=== PATIENT | male | born 1940 | race Caucasian/White ===

== ENCOUNTER 2018-06-29 17:54 | Inpatient (IN) | payer MEDICARE ==
[~2018-06-29] VITALS: Ht 185.4 cm; Wt 99.5 kg
[2018-06-29 18:47] LABS: BASOPHILS # (AUTO) 0.1 (0.0-0.1); BASOPHILS % 0.6 % (0.0-1.0); EOSINOPHILS % 0.1 % (0.0-6.0); HEMATOCRIT 44.7 % (38.2-49.6); HEMOGLOBIN 14.3 g/dL (14.0-18.0); LYMPHOCYTES # (AUTO) 0.3 (1.0-3.2); LYMPHOCYTES % 2.9 % (18.0-39.1); MEAN CORPUSCULAR HEMOGLOBIN 25.8 pg (28-32); MEAN CORPUSCULAR VOLUME 80.7 fL (81-99); MONOCYTES # (AUTO) 0.7 (0.2-0.8); MONOCYTES % 6.2 % (4.4-11.3); NEUTROPHILS # (AUTO) 9.4 (2.1-6.9); NEUTROPHILS % 89.9 % (38.7-80.0); PLATELET COUNT 212 x10e3/uL (140-360); RED BLOOD COUNT 5.54 x10e6/uL (4.3-5.7)
[2018-06-29 18:58] LABS: INR 0.92; PARTIAL THROMBOPLASTIN TIME 24.9 seconds (23.8-35.5); PROTHROMBIN TIME 13.2 seconds (11.9-14.5)
--- NOTE | 2018-06-29 19:01 | Diagnostic Imaging Report ---
Examination: Single AP view of the chest. COMPARISON: None. INDICATION: Pain DISCUSSION: Lines/tubes: None. Lungs: The lungs are well inflated and clear. No pneumonia or pulmonary edema. Pleura: No pleural effusion or pneumothorax. Heart and mediastinum: The heart and the mediastinum are unremarkable. Bones and soft tissues: No acute bony abnormalities. IMPRESSION: 1. No acute cardiopulmonary abnormalities. Signed by: Dr. Rai Landa M.D. on 06/29/2018 6:58 PM
[2018-06-29 19:08] LABS: ALBUMIN 3.6 g/dL (3.5-5.0); ALBUMIN/GLOBULIN RATIO 1.1 (0.8-2.0); ANION GAP 20.4 mmol/L (8-16); CALCIUM 9.4 mg/dL (8.4-10.2); CREATININE, SERUM 1.43 mg/dL (0.72-1.25); POTASSIUM 3.4 mmol/L (3.5-5.1)
[2018-06-29 19:15] LABS: CREATINE KINASE MB 1.1 ng/mL (0-5.0)
[2018-06-29 19:20] LABS: BILIRUBIN,URINE NEGATIVE (NEGATIVE); CLARITY,URINE CLEAR (CLEAR); COLOR,URINE YELLOW (YELLOW); KETONES,URINE TRACE (NEGATIVE); LEUKOCYTE ESTERASE ,URINE NEGATIVE (NEGATIVE); NITRITE,URINE NEGATIVE (NEGATIVE); PROTEIN,URINE DIPSTICK NEGATIVE (NEGATIVE); URINE UROBILINOGEN 0.2 mg/dL (0.2 - 1)
[2018-06-29] MEDS ORDERED: SOTALOL80 MG PO (19:56)
[2018-06-29] MEDS ORDERED: ACETAMINOPHEN325 M1 PO (19:56)
[2018-06-29] MEDS ORDERED: FUROSEMIDE40 MG PO (19:56)
[2018-06-29] MEDS ORDERED: JARDIANCE PO (19:56)
[2018-06-29] MEDS ORDERED: SIMVASTATIN40 MG PO (19:56)
[2018-06-29] MEDS ORDERED: OMEPRAZOLE40 MG PO (19:56)
[2018-06-29] MEDS ORDERED: LISINOPRIL10 MG PO (19:56)
[2018-06-29] MEDS ORDERED: METOPROLOL SUCC50 MG PO (19:56)
[2018-06-29] MEDS ORDERED: TERAZOSIN HCL5 MG PO (19:56)
[2018-06-29] MEDS ORDERED: GLIPIZIDE5 MG PO (19:56)
[2018-06-29] MEDS ORDERED: METFORMIN HCL500 MG PO (19:56)
[2018-06-29] MEDS ORDERED: GABAPENTIN100 MG PO (19:56)
[2018-06-29] MEDS ORDERED: PLAVIX75 MG PO (19:56)
[2018-06-29] MEDS ORDERED: SODIUM CHLORIDE 0.9% 500ML 500 ML IV STA (20:18)
[2018-06-29] MEDS ORDERED: SODIUM CHLORIDE 0.9% 500ML 500 ML ONE (20:23)
[2018-06-29] MEDS ORDERED: IOPAMIDOL 370 MG/ML 200 ML INFUS..BTL INJ ONE (21:53)
[2018-06-29] MEDS ORDERED: SODIUM CHLORIDE 0.9% 50ML 50 ML ONE (21:53)
--- NOTE | 2018-06-29 22:12 | Diagnostic Imaging Report ---
EXAM: CT Abdomen and Pelvis WITH contrast INDICATION: Transaminitis. COMPARISON: None. TECHNIQUE: Abdomen and pelvis were scanned utilizing a multidetector helical scanner from the lung base to the pubic symphysis after administration of IV contrast. Coronal and sagittal reformations were obtained. Routine protocol was performed. Scan was performed when during portal venous phase. IV CONTRAST: 100 mL of Isovue-370 ORAL CONTRAST: Water COMPLICATIONS: None RADIATION DOSE: Total DLP: 802.6 mGy*cm Estimated effective dose: (DLP x 0.015 x size factor) mSv Dose modulation, iterative reconstruction, and/or weight based adjustment of the mA/kV was utilized to reduce the radiation dose to as low as reasonably achievable. FINDINGS: LINES and TUBES: None. LOWER THORAX: Subsegmental atelectasis in the lower lobes. HEPATOBILIARY: No focal hepatic lesions. No biliary ductal dilation. GALLBLADDER: There are stones in the gallbladder. No wall thickening. SPLEEN: No splenomegaly. Peripherally hyperattenuating 1.6 cm lesion. PANCREAS: No suspicious focal masses or ductal dilatation. Subcentimeter focal area of fat in the tail, likely entrapped fat or lipoma (coronal image 62). ADRENALS: No adrenal nodules KIDNEYS/URETERS: Kidneys enhance symmetrically. No hydronephrosis. Right interpolar region 0.7 cm hypodensity is too small to characterize. No stones. GI TRACT: No abnormal distention, wall thickening, or evidence of bowel obstruction. There are diverticula within the colon without evidence of diverticulitis. Appendix is normal. PELVIC ORGANS/BLADDER: Two punctate calcifications in the left posterior bladder, likely stones versus less likely prostatic calcifications. Prostate enlarged measuring approximately 5.9 cm in transverse diameter. Distended bladder. LYMPH NODES: No lymphadenopathy. VESSELS: There is moderate atherosclerotic disease in the aorta and major arterial branches. PERITONEUM / RETROPERITONEUM: No free air or fluid. BONES: There are degenerative changes in the lumbar spine. SOFT TISSUES: Unremarkable. IMPRESSION: 1. No acute abnormalities. 2. Cholelithiasis. 3. Colonic diverticulosis. 4. Prostatomegaly 5. Splenic 1.6 cm lesion, indeterminate. Consider management according to ACR guidelines with follow-up MRI in 6-12 months. Signed by: DR. David Blunt MD on 06/29/2018 10:08 PM
--- OUTSIDE RECORDS SUMMARY | 2018-06-29 23:35 | XMS REPORT ---
Author Author [facility] Address Unknown Phone Unavailable Care Team Providers Care Hip Hop Artist Name Role Phone Juana SMITH Unavailable Unavailable Problems This patient has no known problems. Allergies, Adverse Reactions, Alerts This patient has no known allergies or adverse reactions. Medications This patient has no known medications. Results Test Description Test Time Test Comments Text Results Atomic Results Result Comments CT ABDOMEN/PELVIS W 2018-06-29 21:50:00 [facility] [address], [place] [address] Patient Name: BRADY THOMAS MR #: [id number] : 1940 Age/Sex: 77/M Req #: [id number] Adm Physician: Ordered by: BREN MATHEW MD Report #: [id number] Location: ER Room/Bed: Procedure: [id number] CT/CT ABDOMEN/PELVIS W Exam Date: 06/29/18 Exam Time: 2129 REPORT STATUS: Signed EXAM: CT Abdomen and Pelvis WITH contrast INDICAT ION: Transaminitis. COMPARISON: None. TECHNIQUE: Abdomen and pelvis were scanned utilizing a multidetector helical scanner from the lung base to the pubic symphysis after administration of IV contrast. Coronal and sagittal reformations were obtained. Routine protocol was performed. Scan was performed when during portal venous phase. IV CONTRAST: 100 mL of Isovue-370 ORAL CONTRAST: Water COMPLICATIONS: None RADIATION DOSE: Total DLP: 802.6 mGy*cm Estimated effective dose: (DLP x 0.015 x size factor) mSv Dose modulation, iterative reconstruction, and/or weight based adjustment of the mA/kV was utilized to reduce the radiation dose to as low as reasonably achievable. FINDINGS: LINES and TUBES: None. LOWER THORAX: Subsegmental atelectasis in the lower lobes. HEPATOBILIARY: No focal hepatic lesions. No biliary ductal dilation. GALLBLADDER: There are stones in the gallbladder. No wall thic kening. SPLEEN: No splenomegaly. Peripherally hyperattenuating 1.6 cm lesion. PANCREAS: No suspicious focal masses or ductal dilatation. Subcentimeter focal area of fat in the tail, likely entrapped fat or lipoma (coronal image 62). ADRENALS: No adrenal nodules KIDNEYS/URETERS: Kidneys enhance symmetrically. No hydronephrosis. Right interpolar region 0.7 cm hypodensity is too small to characterize. No stones. GI TRACT: No abnormal distention, wall thickening, or evidence of bowel obstruction. There are diverticula within the colon without evidence of diverticulitis. Appendix is normal. PELVIC ORGANS/BLADDER: Two punctate calcifications in the left posterior bladder, likely stones versus less likely prostatic calcifications. Prostate enlarged measuring approximately 5.9 cm in transverse diameter. Distended bladder. LYMPH NODES: No lymphadenopathy. VESSELS: There is moderate atherosclerotic disease in the aorta and major arterial branches. PERITONEUM / RETROPERITONEUM: No free air or fluid. BONES: There are degenerative changes in the lumbar spine. SOFT TISSUES: Unremarkable. IMPRESSION: 1. No acute abnormalities. 2. Cholelithiasis. 3. Colonic diverticulosis. 4. Prostatomegaly 5. Splenic 1.6 cm lesion, indeterminate. Consider management according to ACR guidelines with follow-up MRI in 6-12 months. Signed by: DR. David Skinner MD on 06/29/2018 10:08 PM Dictated By: DAVID SKINNER MD 07 Transcribed By: NADYA on 06/29/182207 COPY TO: BREN MATHEW MD CHEST SINGLE (PORTABLE) 2018-06-29 18:57:00 [place] [address] Patient Name: BRADY THOMAS MR #: [id number] : 1940 Age/Sex: 77/M Req #: [id number] Adm Physician: Ordered by: DULCE CRAWLEY NP Report #: [id number] Location: ER Room/Bed: Procedure: [id number] DX/CHEST SINGLE (PORTABLE) Exam Date: Exam Time: REPORT STATUS: Signed Examination: Single AP view of the chest. COMPARISON: No ne. INDICATION: Pain DISCUSSION: Lines/tubes: None. Lungs: The lungs are well inflated and clear. No pneumonia or pulmonary edema. Pleura: No pleural effusion or pneumothorax. Heart and mediastinum: The heart and the mediastinum are unremarkable. Bones and soft tissues: No acute bony abnormalities. IMPRESSION: 1. No acute cardiopulmonary abnormalities. Signed by: Dr. Angela Wilson M.D. on 06/29/2018 6:58 PM Dictated By: ANGELA WILSON MD 57 Transcribed By: NADYA on 06/29/181857 COPY TO: DULCE CRAWLEY NP
[2018-06-30] VITALS (9 sets, daily range): BP systolic 127–148; BP diastolic 60–75
[2018-06-30] MEDS ORDERED: DEXTROSE 50% SYRINGE 50 ML IV PRN
--- NOTE | 2018-06-30 00:05 | NUR ---
Pt received from ER. Pt A&O and in no apparent. Pt on 2LNC and no tele. Pt at bedside. All safety measures ensured, bed alarm on, and pt call dominguez near. Pt encouraged to use call dominguez for assistance.
[2018-06-30 05:20] LABS: BASOPHILS # (AUTO) 0.1 (0.0-0.1); BASOPHILS % 0.5 % (0.0-1.0); EOSINOPHILS % 0.1 % (0.0-6.0); HEMATOCRIT 41.5 % (38.2-49.6); HEMOGLOBIN 13.1 g/dL (14.0-18.0); LYMPHOCYTES # (AUTO) 0.7 (1.0-3.2); LYMPHOCYTES % 6.9 % (18.0-39.1); MEAN CORPUSCULAR HGB CONC 31.6 g/dL (31-35); MEAN CORPUSCULAR VOLUME 82.5 fL (81-99); MONOCYTES % 9.8 % (4.4-11.3); NEUTROPHILS # (AUTO) 8.7 (2.1-6.9); NEUTROPHILS % 82.4 % (38.7-80.0); PLATELET COUNT 195 x10e3/uL (140-360); RED BLOOD COUNT 5.03 x10e6/uL (4.3-5.7)
[2018-06-30 05:43] LABS: ALBUMIN 3.2 g/dL (3.5-5.0); ALBUMIN/GLOBULIN RATIO 1.1 (0.8-2.0); ANION GAP 17.6 mmol/L (8-16); CALCIUM 9.2 mg/dL (8.4-10.2); CREATININE, SERUM 1.23 mg/dL (0.72-1.25); POTASSIUM 3.6 mmol/L (3.5-5.1)
--- NOTE | 2018-06-30 07:13 | NUR ---
report given and walking rounds complete
--- NOTE | 2018-06-30 07:24 | NUR ---
patient resting in bed, Alert with no distress, denies any pain, call light in reach
[2018-06-30] MEDS: INSULIN REGULAR, HUMAN 100 UNIT/1 ML 3ML VIAL SQ SCH ×4 (08:00→21:00)
[2018-06-30] MEDS ORDERED: ONDANSETRON HCL INJ 2MG/ML 2ML 2 MG/ML VIAL IV PRN ×2 (08:45)
--- NOTE | 2018-06-30 09:01 | NUR ---
Patient Discharge Status Code Form filed in front of chart
[2018-06-30] MEDS ORDERED: SODIUM CHLORIDE 0.9% 1000ML 1,000 ML IV SCH (09:15)
[2018-06-30 09:49] LABS: FREE T4 (FREE THYROXINE) 0.98 ng/dL (0.9-1.8); THYROID STIMULATING HORMONE 0.511 uIU/mL (0.350-4.940)
--- NOTE | 2018-06-30 10:04 | Diagnostic Imaging Report ---
CT BRAIN WO HISTORY: Weakness COMPARISON: None. Technique: Noncontrast axial scans were obtained from skull base to the vertex. Coronal and sagittal reconstructions obtained from the axial data. One or more of the following dose reduction techniques were used: Automated exposure control, adjustment of the mA and/or kV according to patient size, and/or utilization of iterative reconstruction technique. DISCUSSION: Scalp/Skull: Unremarkable. Brain sulci: Mildly prominent. Ventricles: Compensatory dilatation. Extra-axial spaces: No masses or fluid collections. Carotid siphon and vertebral artery calcifications are present. Parenchyma: Mild bilateral deep white matter hypodensity is likely chronic microvascular ischemic change. There is an old left paramedian thalamic lacunar infarct. Old small bilateral inferior cerebellar cortical infarcts are also present. Otherwise, no masses, hemorrhage, or large vascular territory acute infarct. Dural sinuses: No abnormal densities. Sellar/Suprasellar region: Intact. Skull base: Intact. Incidental findings: A 1.1 cm nodule in the superficial left parotid gland is partially visualized. There is mild mucosal thickening in the left ethmoid air cells. IMPRESSION: 1. No acute intracranial abnormalities. 2. Mild supratentorial chronic microvascular ischemic change. Mild generalized cerebral volume loss. 3. Old left thalamic lacunar infarct. Old small bilateral inferior cerebellar cortical infarcts. 4. Nonspecific partially visualized 1.1 cm nodule in the superficial left parotid gland may be a lymph node or pleomorphic adenoma. Signed by: Dr. Ricardo Nicole M.D. on 06/30/2018 10:01 AM
[2018-06-30] MEDS: FUROSEMIDE 20 MG TAB PO SCH ×4 (11:12→22:07)
[2018-06-30] MEDS: CLOPIDOGREL BISULFATE 75 MG TAB PO SCH (11:12)
[2018-06-30] MEDS: METOPROLOL SUCCINATE 50 MG TAB XL PO SCH ×2 (11:12→17:33)
[2018-06-30] MEDS: GABAPENTIN 100 MG CAP PO SCH ×2 (11:12→17:33)
[2018-06-30] MEDS: TERAZOSIN HCL 5 MG CAP PO SCH ×2 (11:12→17:33)
[2018-06-30] MEDS: GLIPIZIDE 5 MG TAB PO SCH ×2 (11:12→17:33)
[2018-06-30] MEDS: PANTOPRAZOLE SOD 40 MG TABEC PO SCH (11:12)
[2018-06-30] MEDS: LISINOPRIL 20 MG TAB PO SCH ×2 (11:12→17:33)
[2018-06-30] MEDS: SIMVASTATIN 40 MG TAB PO SCH (22:07)
[2018-07-01] VITALS (8 sets, daily range): BP systolic 127–168; BP diastolic 68–92
--- NOTE | 2018-07-01 00:50 | NUR ---
PATIENT CONDITION IS STABLE WITHOUT RESPIRATORY DISTRESS, HE DENIES ABDOMINAL PAIN. DR Chery SNOW SAW THE PATIENT, NEW ORDERS RECEIVED.
[2018-07-01 04:11] LABS: BASOPHILS # (AUTO) 0.1 (0.0-0.1); BASOPHILS % 0.7 % (0.0-1.0); EOSINOPHILS # (AUTO) 0.1 (0.0-0.4); EOSINOPHILS % 1.5 % (0.0-6.0); HEMATOCRIT 39.3 % (38.2-49.6); HEMOGLOBIN 12.4 g/dL (14.0-18.0); LYMPHOCYTES # (AUTO) 1.1 (1.0-3.2); LYMPHOCYTES % 15.2 % (18.0-39.1); MEAN CORPUSCULAR HEMOGLOBIN 25.6 pg (28-32); MEAN CORPUSCULAR HGB CONC 31.6 g/dL (31-35); MONOCYTES # (AUTO) 0.7 (0.2-0.8); MONOCYTES % 9.9 % (4.4-11.3); NEUTROPHILS # (AUTO) 5.3 (2.1-6.9); NEUTROPHILS % 72.4 % (38.7-80.0); PLATELET COUNT 183 x10e3/uL (140-360); RED BLOOD COUNT 4.85 x10e6/uL (4.3-5.7)
[2018-07-01 04:39] LABS: ALANINE AMINOTRANSFERASE 193 IU/L (0-55); ALBUMIN 2.9 g/dL (3.5-5.0); ALKALINE PHOSPHATASE 203 IU/L (40-150); ANION GAP 15.6 mmol/L (8-16); BILIRUBIN,DIRECT 0.8 mg/dL (0.0-0.5); BLOOD UREA NITROGEN 14 mg/dL (7-26); BUN/CREATININE RATIO 16 (6-25); CALCIUM 8.7 mg/dL (8.4-10.2); CARBON DIOXIDE 22 mmol/L (22-29); CHLORIDE 104 mmol/L (98-107); CREATININE, SERUM 0.89 mg/dL (0.72-1.25); EST GLOMERULAR FILTRATION RATE > 60 ML/MIN (60-); GLUCOSE 178 mg/dL (74-118); LIPASE 54 U/L (8-78); POTASSIUM 3.6 mmol/L (3.5-5.1); SODIUM 138 mmol/L (136-145)
--- NOTE | 2018-07-01 04:43 | NUR ---
PATIENT IS UP READING, NO DISTRESS OBSERVED AND HE DENIES PAIN. CALL LIGHT WITHIN EASY REACH, INSTRUCTED TO CALL FOR ASSISTANCE NEEDED.
--- NOTE | 2018-07-01 06:22 | NUR ---
MCCRARY CATHETER REMOVED BY A MALE NURSE, PATIENT TOLERATED PROCEDURE WELL. URINAL AND CALL LIGHT WITHIN EASY REACH.
[2018-07-01] MEDS: PANTOPRAZOLE SOD 40 MG TABEC PO SCH (08:01)
[2018-07-01] MEDS: INSULIN REGULAR, HUMAN 100 UNIT/1 ML 3ML VIAL SQ SCH ×4 (08:01→20:41)
[2018-07-01] MEDS: CLOPIDOGREL BISULFATE 75 MG TAB PO SCH (08:01)
[2018-07-01] MEDS: FUROSEMIDE 20 MG TAB PO SCH ×4 (08:01→20:40)
[2018-07-01] MEDS: GLIPIZIDE 5 MG TAB PO SCH ×2 (08:01→16:45)
[2018-07-01] MEDS: TERAZOSIN HCL 5 MG CAP PO SCH ×2 (08:01→16:48)
[2018-07-01] MEDS: GABAPENTIN 100 MG CAP PO SCH ×2 (08:01→16:48)
[2018-07-01] MEDS: LISINOPRIL 20 MG TAB PO SCH ×2 (08:02→16:48)
[2018-07-01] MEDS: METOPROLOL SUCCINATE 50 MG TAB XL PO SCH ×2 (08:02→16:48)
--- NOTE | 2018-07-01 08:05 | NUR ---
Patient up in bed, Alert with no distress, denies any chest pain or SOB, Call light in reach
--- NOTE | 2018-07-01 11:10 | Diagnostic Imaging Report ---
ADDENDUM #1 Addendum: Asked to review this case by Dr. Lisa Mejias in light of intraoperative cholangiogram with a filling defect in the distal common bile duct concerning or choledocholithiasis. Low signal filling defect in the distal common bile duct is evident on series 7 image 26, series 8 image 23, series 9 image 5, in keeping with choledocholithiasis.. Signed by: Dr. Jeanmarie Palacios M.D. on 07/03/2018 12:58 PM ORIGINAL REPORT EXAM: Magnetic Resonance Cholangiopancreatography (M.R.C.P.) INDICATION: ^ELEVATED LIVER ENZYMES,GALLSTONES ^[id number] ^15 ^Y COMPARISON: CT abdomen and pelvis 06/29/2018 TECHNIQUE: Multiplanar, multisequence MRCP was performed, with sequences including coronal turbo spin-echo T1-weighted scans, [facility] MRCP scans, coronal spin, coronal MPR 2, SMRCP 3D HR, [facility] MRCP GARZA. IV Contrast: None Oral Contrast: None Medications: None COMPLICATIONS: None FINDINGS: LOWER THORAX: Unremarkable. HEPATOBILIARY: No focal hepatic lesions. No intrahepatic biliary ductal dilation. No stones within the intrahepatic ducts. The common bile duct is mildly prominent measuring 0.8 cm in diameter without visualized stones. GALLBLADDER: Again noted, multiple small gallstones (approximately 10-12, measuring 4 to 6 mm) within the gallbladder and near the gallbladder neck. There is a tiny stone within the proximal cystic duct, better seen on series 7, image 27. The cystic duct is normal in caliber. No wall thickening. SPLEEN: No splenomegaly. Again noted, there is a 1.6 cm T2 hyperintense lesion within the spleen near the hilar, incompletely evaluated on this exam. Differential diagnosis includes hemangioma. Recommend again follow-up in 6-12 months. PANCREAS: No focal masses or ductal dilatation. ADRENALS: No adrenal nodules KIDNEYS/URETERS: No hydronephrosis. No cystic or solid mass lesions. No stones. GI TRACT: No abnormal distention, wall thickening, or evidence of bowel obstruction. Appendix is normal. LYMPH NODES: No lymphadenopathy. VESSELS: Unremarkable. PERITONEUM / RETROPERITONEUM: No free air or fluid. BONES: Unremarkable. SOFT TISSUES: Unremarkable. IMPRESSION: 1. Cholelithiasis, containing multiple small gallstones. No cholecystitis. 2. Tiny stone in the proximal cystic duct without dilatation. 3. Mildly prominent common bile duct without visualized choledocholithiasis. Signed by: Dr. Toña Eugene M.D. on 07/01/2018 11:07 AM
[2018-07-01] MEDS ORDERED: GUAIFENESIN 200 MG/10 ML UDC PO PRN (13:15)
[2018-07-01] MEDS: LEVOFLOXACIN 500MG/D5W 100ML 100 ML IV SCH (16:45)
--- NOTE | 2018-07-01 18:50 | NUR ---
patient resting in bed, tolerated with dinner, at bed side, no distress noted
--- NOTE | 2018-07-01 20:27 | NUR ---
Patient is AxO x 4. Patient has no pain or distress. Call dominguez within reach. Received report from day shift nurse.
[2018-07-01] MEDS: SIMVASTATIN 40 MG TAB PO SCH (20:40)
[2018-07-02] VITALS (8 sets, daily range): BP systolic 137–174; BP diastolic 61–90
[2018-07-02 03:59] LABS: BASOPHILS # (AUTO) 0.1 (0.0-0.1); BASOPHILS % 0.9 % (0.0-1.0); EOSINOPHILS # (AUTO) 0.2 (0.0-0.4); HEMATOCRIT 41.4 % (38.2-49.6); HEMOGLOBIN 13.2 g/dL (14.0-18.0); LYMPHOCYTES # (AUTO) 1.2 (1.0-3.2); LYMPHOCYTES % 20.8 % (18.0-39.1); MEAN CORPUSCULAR HEMOGLOBIN 25.9 pg (28-32); MEAN CORPUSCULAR HGB CONC 31.9 g/dL (31-35); MEAN CORPUSCULAR VOLUME 81.2 fL (81-99); MONOCYTES # (AUTO) 0.5 (0.2-0.8); MONOCYTES % 9.5 % (4.4-11.3); NEUTROPHILS # (AUTO) 3.7 (2.1-6.9); NEUTROPHILS % 65.6 % (38.7-80.0); PLATELET COUNT 186 x10e3/uL (140-360); RED CELL DISTRIBUTION WIDTH 18.2 % (11.7-14.4)
[2018-07-02 04:31] LABS: ALANINE AMINOTRANSFERASE 163 IU/L (0-55); ALBUMIN/GLOBULIN RATIO 0.9 (0.8-2.0); ALKALINE PHOSPHATASE 209 IU/L (40-150); ANION GAP 15.5 mmol/L (8-16); BLOOD UREA NITROGEN 10 mg/dL (7-26); BUN/CREATININE RATIO 12 (6-25); CALCIUM 8.9 mg/dL (8.4-10.2); CARBON DIOXIDE 22 mmol/L (22-29); CHLORIDE 106 mmol/L (98-107); CREATININE, SERUM 0.83 mg/dL (0.72-1.25); EST GLOMERULAR FILTRATION RATE > 60 ML/MIN (60-); GLUCOSE 177 mg/dL (74-118); POTASSIUM 3.5 mmol/L (3.5-5.1); SODIUM 140 mmol/L (136-145)
[2018-07-02 04:50] LABS: BILIRUBIN,DIRECT 0.5 mg/dL (0.0-0.5)
--- NOTE | 2018-07-02 07:19 | NUR ---
REPORT GIVEN TO ONCOMING NURSE. PATIENT IS AWAKE IN BED. NO PAIN OR DISTRESS. CALL BORJA WITHIN REACH
[2018-07-02] MEDS: GLIPIZIDE 5 MG TAB PO SCH ×2 (08:14→17:00)
[2018-07-02] MEDS: PANTOPRAZOLE SOD 40 MG TABEC PO SCH (08:14)
[2018-07-02] MEDS: CLOPIDOGREL BISULFATE 75 MG TAB PO SCH (08:15)
[2018-07-02] MEDS: TERAZOSIN HCL 5 MG CAP PO SCH ×2 (08:15→17:00)
[2018-07-02] MEDS: METOPROLOL SUCCINATE 50 MG TAB XL PO SCH ×2 (08:15→17:00)
[2018-07-02] MEDS: LISINOPRIL 20 MG TAB PO SCH ×2 (08:15→17:00)
[2018-07-02] MEDS: FUROSEMIDE 20 MG TAB PO SCH ×4 (08:15→20:31)
[2018-07-02] MEDS: GABAPENTIN 100 MG CAP PO SCH ×2 (08:15→17:00)
[2018-07-02] MEDS: INSULIN REGULAR, HUMAN 100 UNIT/1 ML 3ML VIAL SQ SCH ×5 (08:16→21:00)
[2018-07-02] MEDS ORDERED: NORVASC10 MG PO (09:42)
[2018-07-02] MEDS ORDERED: GUAIFENESIN 600MG/DEXTROMETHORPHAN 30MG TABSR PO PRN (10:00)
--- NOTE | 2018-07-02 10:40 | NUR ---
Dr.P Mejias aware patient has been cleared for surgery by Charity Xie NP and by Rodolfo Castillo (who is covering for )
[2018-07-02] MEDS: AMLODIPINE BESYLATE 10 MG TAB PO SCH (11:51)
--- NOTE | 2018-07-02 12:41 | Consultation ---
DATE OF CONSULTATION: July 02, 2018 REASON FOR CONSULTATION: Gallstones, abnormal liver chemistries. HISTORY OF PRESENT ILLNESS: The patient is a 77-year-old male admitted to the hospital because he felt dizzy, weak, and chills. The patient came to the emergency room where he was found to have elevation of the liver chemistries with a bilirubin of 2.4, alkaline phosphatase of 281, ALT of 366, and AST of 197. At this point, his liver chemistries are trending down. Because of this, he underwent a CT scan of the abdomen that revealed no acute pathology. He also underwent an MRCP that revealed no acute abnormalities. There were gallstones and diverticula. He underwent in addition an MRCP that revealed again cholelithiasis with multiple small stones. There was stone in the proximal cystic duct, no choledocholithiasis; however, the common duct was mildly prominent without choledocholithiasis. The patient was evaluated by GI and by medicine upon this admission and surgical consultation was requested. PAST MEDICAL HISTORY: Significant for atrial fibrillation, history of intracranial bleed in the past. PAST SURGICAL HISTORY: He has no abdominal surgeries. SOCIAL HISTORY: He used to drink when he was young and smoked. He does not do either at this time. REVIEW OF SYSTEMS: At this point, the patient feels fine. He denies any abdominal pain. He denies any previous history of fatty food intolerance or any other GI problems. MEDICINES: See the list. He is taking Plavix, which has been stopped. LABS: Admission CBC was essentially normal as well as followup. PHYSICAL EXAMINATION GENERAL: Reveals a 77-year-old male, awake, alert, moderately obese, in no acute distress. HEAD, EYES, EARS, NOSE, AND THROAT: Reveals no acute process. LUNGS: Clear. HEART: Reveals regular rhythm. ABDOMEN: Soft and nontender. No abdominal wall hernia. No masses. EXTREMITIES: Reveal no clubbing, cyanosis, or edema. ASSESSMENT: Abnormal liver chemistries with gallstones. The liver chemistries elevation is trending down. MRCP reveals no choledocholithiasis. History of atrial fibrillation, intracranial bleed. PLAN: The patient, at this time, does not require any further GI workup, and if he is cleared by medicine, I think the safest course of action is to proceed with laparoscopic cholecystectomy, possible open cholecystectomy, and possible liver biopsy. The patient understands the risks associated with surgery. He also understands the risks associated with cholelithiasis and the possibility of developing ascending cholangitis, which is possible he had upon admission as well as pancreatitis, and we will then proceed with laparoscopic cholecystectomy tomorrow if it is okay with everybody else. Job#: [id number] LPA
--- NOTE | 2018-07-02 13:29 | NUR ---
Report given to Kojo FU of patient's status. Taken via wheelchair to RM 293. No s/s of acute distress noted.
--- NOTE | 2018-07-02 13:50 | NUR ---
Visit made by the Spiritual Care Department Pastoral Visitor, Juanita Garrison. PV provided pastoral presence, prayer, hospitality, and supportive listening. Pastoral Visitor informed pt/family of the scope of Equipment Service Engineer Services and availability. TUAN HAWLEY Working Foreman Spiritual Care Department O: [phone] Pager: [phone] ([phone] number calling from)
--- NOTE | 2018-07-02 14:10 | NUR ---
RECD PT FROM ROOM 185 VIA W/C AAOX3,DENIES PAIN ,TELE IN PLACE AFIB
[2018-07-02] MEDS: LEVOFLOXACIN 500MG/D5W 100ML 100 ML IV SCH (16:10)
--- NOTE | 2018-07-02 16:30 | NUR ---
IV SITE HURTS DCD ,RESTARTED TO RT WRIST 20 GAUGE ,TOLERATED WELL.
[2018-07-02] MEDS ORDERED: SODIUM CHLORIDE 0.9% 250ML 250 ML ONE (16:33)
--- NOTE | 2018-07-02 17:59 | NUR ---
PT UP IN BED DENIES PAIN ,NO DISTRESS NOTED.
--- NOTE | 2018-07-02 19:00 | NUR ---
patient recieved awake, alert, lying quietly in bed. no c/o pain noted. patient to remain npo after mn tonight for surgery tomorrow. patient verbalizes understanding of this. pm assessment complete. patient instructed to call for assistance when needed.
[2018-07-02] MEDS: SIMVASTATIN 40 MG TAB PO SCH (20:31)
[2018-07-03] VITALS (8 sets, daily range): BP systolic 116–175; BP diastolic 56–80
[2018-07-03 03:09] LABS: BASOPHILS # (AUTO) 0.1 (0.0-0.1); BASOPHILS % 1.3 % (0.0-1.0); EOSINOPHILS # (AUTO) 0.2 (0.0-0.4); EOSINOPHILS % 3.2 % (0.0-6.0); HEMATOCRIT 40.5 % (38.2-49.6); HEMOGLOBIN 12.9 g/dL (14.0-18.0); LYMPHOCYTES # (AUTO) 1.1 (1.0-3.2); LYMPHOCYTES % 19.4 % (18.0-39.1); MEAN CORPUSCULAR HGB CONC 31.9 g/dL (31-35); MEAN CORPUSCULAR VOLUME 81.7 fL (81-99); MONOCYTES # (AUTO) 0.6 (0.2-0.8); NEUTROPHILS # (AUTO) 3.6 (2.1-6.9); NEUTROPHILS % 64.9 % (38.7-80.0); PLATELET COUNT 194 x10e3/uL (140-360); RED BLOOD COUNT 4.96 x10e6/uL (4.3-5.7); RED CELL DISTRIBUTION WIDTH 17.9 % (11.7-14.4)
[2018-07-03 03:31] LABS: ANION GAP 14.9 mmol/L (8-16); BLOOD UREA NITROGEN 12 mg/dL (7-26); BUN/CREATININE RATIO 14 (6-25); CALCIUM 9.1 mg/dL (8.4-10.2); CARBON DIOXIDE 23 mmol/L (22-29); CHLORIDE 103 mmol/L (98-107); CREATININE, SERUM 0.84 mg/dL (0.72-1.25); EST GLOMERULAR FILTRATION RATE > 60 ML/MIN (60-); GLUCOSE 232 mg/dL (74-118); MAGNESIUM 2.1 MG/DL (1.3-2.1); POTASSIUM 3.9 mmol/L (3.5-5.1); SODIUM 137 mmol/L (136-145)
--- NOTE | 2018-07-03 07:24 | NUR ---
PATIENT IN BED WITH HEAD OF BED ELEVATED WATCHING TV, NO RESPIRATORY DISTRESS. REMAINS NPO FOR A PROCEDURE. HIBICLENS BATH RECEIVED. BED IN LOWER POSITION, CALL LIGHT AT REACH.
[2018-07-03] MEDS: INSULIN REGULAR, HUMAN 100 UNIT/1 ML 3ML VIAL SQ SCH ×4 (07:30→21:00)
[2018-07-03] MEDS: PANTOPRAZOLE SOD 40 MG TABEC PO SCH (07:30)
[2018-07-03] MEDS: GLIPIZIDE 5 MG TAB PO SCH (08:00)
[2018-07-03 08:42] LABS: ALBUMIN 3.1 g/dL (3.5-5.0); BILIRUBIN,DIRECT 0.4 mg/dL (0.0-0.5)
[2018-07-03] MEDS: TERAZOSIN HCL 5 MG CAP PO SCH ×2 (09:00→17:44)
[2018-07-03] MEDS: METOPROLOL SUCCINATE 50 MG TAB XL PO SCH ×2 (09:00→17:44)
[2018-07-03] MEDS: AMLODIPINE BESYLATE 10 MG TAB PO SCH (09:00)
[2018-07-03] MEDS: LISINOPRIL 20 MG TAB PO SCH ×2 (09:00→17:44)
[2018-07-03] MEDS: GABAPENTIN 100 MG CAP PO SCH ×2 (09:00→17:44)
[2018-07-03] MEDS: CLOPIDOGREL BISULFATE 75 MG TAB PO SCH (09:00)
[2018-07-03] MEDS: FUROSEMIDE 20 MG TAB PO SCH ×4 (09:00→21:00)
[2018-07-03] MEDS: HYDRALAZINE HCL 20 MG/ML VIAL IV PRN (09:05)
--- NOTE | 2018-07-03 09:45 | NUR ---
PATIENT OFF UNIT TO OR.
[2018-07-03] MEDS ORDERED: ACETAMINOPHEN 1000 MG/100 ML 100 ML IV ONE (09:58)
[2018-07-03] MEDS ORDERED: SUGAMMADEX SODIUM 200 MG/2 ML VIAL IV ONE (09:59)
[2018-07-03] MEDS ORDERED: IOPAMIDOL 200 MG/ML 20 ML VIAL IT ONE (10:03)
[2018-07-03] MEDS ORDERED: GLUCAGON FOR INJ 1 MG VIAL ONE (11:08)
[2018-07-03] MEDS ORDERED: ONDANSETRON HCL INJ 2MG/ML 2ML 2 MG/ML VIAL IV PRN (12:15)
[2018-07-03] MEDS ORDERED: HYDROMORPHONE 2MG/ML 2 MG/ML ML ONE (12:22)
--- NOTE | 2018-07-03 13:08 | Diagnostic Imaging Report ---
Examination: Intraoperative cholangiogram. Clinical indication: Cholecystectomy. Comparison examination: MRCP 07/01/2018 Fluoroscopy time: 47 seconds Air kerma: 35.49 mGy Findings: Contrast material was injected into the biliary system without a radiologist present. There is a filling defect in the distal common bile duct with a meniscus and no evidence of passage of contrast into the small bowel. The remainder of the common bile duct and partially visualized common hepatic duct are unremarkable, as is the cystic duct remnant with a surgical clamp in place. Impression: Filling defect in the distal common bile duct compatible with choledocholithiasis. Findings were discussed with Dr. Juana Mejias at 1255 on 07/03/18. Signed by: Dr. Jeanmarie Palacios M.D. on 07/03/2018 1:05 PM
--- NOTE | 2018-07-03 13:40 | NUR ---
PATIENT BACK TO UNIT FROM OR. REPORT RECEIVED FROM BOBO WINN. PATIENT HAD A LAPAROSCOPIC CHOLECYSTECTOMY. 4 SITES DRY AND INTACT TO ABDOMEN. PATIENT ALERT AND VERBALLY RESPONSIVE, BUT DROWSY. RECEIVED DILAUDID BEFORE TRANSFER. PATIENT RECEIVED GLUCAGON IN OR; MCCRARY CATHETER WAS INSERTED AND REMOVED IN THE OR, PATIENT IS DUE TO VOID, URINAL PROVIDED. ORDER RECEIVED FROM DR Lisa HICKS TO HOLD GLIPIZIDE PER PACU NURSE. BED IN LOWER POSITION AND LOCKED. CALL LIGHT AT REACH, INSTRUCTED TO CALL FOR ASSISTANCE NEEDED. FAMILY AT BED SIDE. BED ALARM ACTIVATED. V/S 96.4-92-18-153/69 AND 95% ON 2L N/C.
--- NOTE | 2018-07-03 15:59 | NUR ---
PATIENT EDUCATED ON HOLDING PILLOW WHILE COUGHING. EXTRA PILLOW PROVIDED. IN BED TALKING TO FAMILY MEMBER, CALL LIGHT AT REACH.
[2018-07-03] MEDS: LEVOFLOXACIN 500MG/D5W 100ML 100 ML IV SCH (16:30)
[2018-07-03] MEDS ORDERED: ROCURONIUM BROMIDE 10 MG/ML 5ML VIAL ONE (17:33)
[2018-07-03] MEDS ORDERED: PROPOFOL IV EMULSION 10 MG/ML 20 ML VIAL ONE (17:33)
[2018-07-03] MEDS ORDERED: ACETAMINOPHEN 1000 MG/100 ML IV ONE (17:33)
[2018-07-03] MEDS ORDERED: LIDOCAINE HCL 2% LOCAL INJ 5 ML SDV VIAL INJ ONE (17:33)
[2018-07-03] MEDS ORDERED: DESFLURANE 240 ML BTL INH ONE (17:33)
[2018-07-03] MEDS ORDERED: FENTANYL CITRATE/PF 100MCG/2 ML INJ ONE (17:53)
--- NOTE | 2018-07-03 18:04 | NUR ---
CALL RECEIVED FROM TELEMETRY STAFF STATING THAT PATIENT'S HR WAS IN THE 150. VITAL SIGNS CHECKED, PATIENT NOTED WITH HR RANGING FROM 118-126. PATIENT STATED THAT IT WAS NORMAL FOR HIM BECAUSE HE HAS A HISTORY OF AFIB. HAD A LAP NAYELI TODAY, DRESSING REMAINS DRY AND INTACT TO ABDOMEN, PATIENT DENIED PAIN. DR HICKS IN AT THIS TIME AND PATIENT REASSESSED, NO COMPLAIN VOICED. DR JEFFREY'S CONGRESSIONAL DISTRICT AIDE NOTIFIED, NO NEW ORDER RECEIVED. WILL CLOSELY MONITOR. V/S 97.7-510-10-158/77 AND 93% ON RA.
--- NOTE | 2018-07-03 19:00 | NUR ---
patient recieved awake, alert, lying quietly in bed. pain minimal at this time. dressings to trochar sites to abd c,d,i. patient voiding per urinal at the bedside without difficulty. pm assessment complete. patient instructed to call for assistance when needed.
--- NOTE | 2018-07-03 19:00 | NUR ---
PATIENT VOIDED 100 CC OF YELLOW URINE TO URINAL.
[2018-07-03] MEDS: SIMVASTATIN 40 MG TAB PO SCH (21:00)
[2018-07-03] MEDS: HYDROCODONE/APAP 7.5MG-325MG 1 EA TAB PO PRN (21:15)
--- NOTE | 2018-07-03 21:15 | NUR ---
patient medicated with norco 7.5/325 mg po for c/o abd pain 11/22. patient repositioned for comfort. side rails up x 3 and call dominguez placed within reach. patient instructed to call for assistance when needed.
[2018-07-04] VITALS (7 sets, daily range): BP systolic 142–178; BP diastolic 64–92
--- NOTE | 2018-07-04 | NUR ---
here to see patient. Pt for ERCP tomorrow. Patient made aware of this at this time.
--- NOTE | 2018-07-04 02:50 | NUR ---
consent obtained by patient for ERCP at this time and placed on patients chart.
[2018-07-04] MEDS: HYDROCODONE/APAP 7.5MG-325MG 1 EA TAB PO PRN ×2 (02:53→21:20)
--- NOTE | 2018-07-04 02:53 | NUR ---
patient medicated with norco 7.5/325 mg po for c/o abd pain 10/23. will continue to monitor.
--- NOTE | 2018-07-04 02:55 | NUR ---
am blood drawn at this time per orders.
[2018-07-04 02:58] LABS: BASOPHILS % 0.5 % (0.0-1.0); HEMATOCRIT 40.1 % (38.2-49.6); HEMOGLOBIN 12.7 g/dL (14.0-18.0); LYMPHOCYTES # (AUTO) 0.9 (1.0-3.2); LYMPHOCYTES % 11.2 % (18.0-39.1); MEAN CORPUSCULAR HGB CONC 31.7 g/dL (31-35); MEAN CORPUSCULAR VOLUME 82.2 fL (81-99); MONOCYTES # (AUTO) 0.8 (0.2-0.8); MONOCYTES % 10.1 % (4.4-11.3); NEUTROPHILS % 78.1 % (38.7-80.0); PLATELET COUNT 183 x10e3/uL (140-360); RED BLOOD COUNT 4.88 x10e6/uL (4.3-5.7); RED CELL DISTRIBUTION WIDTH 18.1 % (11.7-14.4)
[2018-07-04 03:18] LABS: ANION GAP 14.7 mmol/L (8-16); BLOOD UREA NITROGEN 12 mg/dL (7-26); BUN/CREATININE RATIO 13 (6-25); CALCIUM 9.1 mg/dL (8.4-10.2); CARBON DIOXIDE 22 mmol/L (22-29); CHLORIDE 103 mmol/L (98-107); CREATININE, SERUM 0.92 mg/dL (0.72-1.25); EST GLOMERULAR FILTRATION RATE > 60 ML/MIN (60-); GLUCOSE 165 mg/dL (74-118); POTASSIUM 3.7 mmol/L (3.5-5.1); SODIUM 136 mmol/L (136-145)
[2018-07-04 03:34] LABS: MAGNESIUM 1.8 MG/DL (1.3-2.1)
--- NOTE | 2018-07-04 04:00 | NUR ---
patient oob to chair without difficulty. no further c/o pain noted.
[2018-07-04 06:53] LABS: BASOPHILS # (AUTO) 0.1 (0.0-0.1); BASOPHILS % 0.6 % (0.0-1.0); EOSINOPHILS % 0.2 % (0.0-6.0); HEMATOCRIT 42.4 % (38.2-49.6); LYMPHOCYTES # (AUTO) 1.1 (1.0-3.2); LYMPHOCYTES % 13.1 % (18.0-39.1); MEAN CORPUSCULAR HEMOGLOBIN 25.6 pg (28-32); MEAN CORPUSCULAR HGB CONC 30.7 g/dL (31-35); MEAN CORPUSCULAR VOLUME 83.6 fL (81-99); MONOCYTES # (AUTO) 0.8 (0.2-0.8); MONOCYTES % 9.5 % (4.4-11.3); NEUTROPHILS # (AUTO) 6.2 (2.1-6.9); NEUTROPHILS % 76.2 % (38.7-80.0); PLATELET COUNT 199 x10e3/uL (140-360); RED BLOOD COUNT 5.07 x10e6/uL (4.3-5.7); RED CELL DISTRIBUTION WIDTH 18.6 % (11.7-14.4)
--- NOTE | 2018-07-04 07:20 | NUR ---
PATIENT IN BED RESTING WITH NO RESPIRATORY DISTRESS. REMAINS NPO FOR A PROCEDURE. 4 DRESSING SITES TO ABDOMEN DRY AND INTACT. BED IN LOWER POSITION AND LOCKED. CALL LIGHT AT REACH.
[2018-07-04] MEDS: PANTOPRAZOLE SOD 40 MG TABEC PO SCH (07:30)
[2018-07-04] MEDS: INSULIN REGULAR, HUMAN 100 UNIT/1 ML 3ML VIAL SQ SCH ×4 (07:30→20:59)
[2018-07-04 07:40] LABS: ALANINE AMINOTRANSFERASE 133 IU/L (0-55); ALBUMIN 2.9 g/dL (3.5-5.0); ALBUMIN/GLOBULIN RATIO 0.9 (0.8-2.0); ALKALINE PHOSPHATASE 176 IU/L (40-150); ANION GAP 14.9 mmol/L (8-16); BLOOD UREA NITROGEN 12 mg/dL (7-26); BUN/CREATININE RATIO 12 (6-25); CALCIUM 9.3 mg/dL (8.4-10.2); CARBON DIOXIDE 24 mmol/L (22-29); CHLORIDE 102 mmol/L (98-107); EST GLOMERULAR FILTRATION RATE > 60 ML/MIN (60-); GLUCOSE 174 mg/dL (74-118); POTASSIUM 3.9 mmol/L (3.5-5.1); SODIUM 137 mmol/L (136-145)
[2018-07-04] MEDS ORDERED: METOPROLOL TARTRATE INJ 1 MG/ML VIAL IV PRN ×2 (07:45→22:15)
[2018-07-04] MEDS: MORPHINE SULFATE INJ 4 MG/ML INJ 1ML IV PRN ×2 (08:15→18:10)
[2018-07-04] MEDS: METOPROLOL SUCCINATE 50 MG TAB XL PO SCH ×2 (09:00→17:00)
[2018-07-04] MEDS: LISINOPRIL 20 MG TAB PO SCH ×2 (09:00→17:00)
[2018-07-04] MEDS: CLOPIDOGREL BISULFATE 75 MG TAB PO SCH (09:00)
[2018-07-04] MEDS: AMLODIPINE BESYLATE 10 MG TAB PO SCH (09:00)
[2018-07-04] MEDS: FUROSEMIDE 20 MG TAB PO SCH ×4 (09:00→20:21)
[2018-07-04] MEDS: TERAZOSIN HCL 5 MG CAP PO SCH ×2 (09:00→17:00)
[2018-07-04] MEDS: GABAPENTIN 100 MG CAP PO SCH ×2 (09:00→17:00)
[2018-07-04] MEDS ORDERED: MORPHINE SULFATE INJ 4 MG/ML INJ 1ML IV ONE (12:15)
--- NOTE | 2018-07-04 13:20 | NUR ---
PATIENT OFF UNIT TO OR.
[2018-07-04] MEDS ORDERED: IOPAMIDOL 200 MG/ML 20 ML VIAL IT ONE (13:24)
[2018-07-04] MEDS ORDERED: IOPAMIDOL 610MG/1ML 300 MG/ML VIAL IV ONE (13:41)
[2018-07-04] MEDS ORDERED: GLUCAGON FOR INJ 1 MG VIAL ONE (14:00)
[2018-07-04] MEDS ORDERED: INDOMETHACIN 50 MG SUPP.RECT RC ONE (14:09)
--- NOTE | 2018-07-04 14:09 | NUR ---
LATE ENTRY: 07/03/2018 CM MET W THE PT AT THE BEDSIDE. PT STATES HE LIVES AT [facility]. STATES HE HAS A FRIEND THAT CAN PICK HIM UP AT [place]. INDEPENDENT W ADL'S. STILL DRIVES FOR SHOPPING AND F/U APPOINTMENTS. HAS [employer]. 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 PT TO GO FOR LAP [employer] TODAY. IMM LETTER EXPLAINED. VERBALIZED UNDERSTANDING. LETTER WA SIGNED AND COPY TO PT AND COPY TO CHART.
--- NOTE | 2018-07-04 15:53 | Diagnostic Imaging Report ---
EXAM: ERCP TO BE READ DATE: 07/04/2018 12:00 AM INDICATION: Transaminitis COMPARISON: Operative cholangiogram, 07/03/2018; MRCP, 07/01/2018 Fluoroscopic time: 1 minute, 27 seconds Fluoroscopic dose: 73.79 mGy FINDINGS: 10 fluoroscopic spot images are submitted. A radiologist was not present during the procedure. Images show a catheter inserted through an endoscope extending up the common bile duct. Contrast injection shows mild distention of the common duct with partial opacification of nondilated intrahepatic ducts. Filling defects, if present, are not well seen and correlation is needed with fluoroscopic observation. Final image provided shows a stent extending from the region of the ampulla towards the midline near T12. According to the on-site radiologist, the endoscopist indicated that the stent was removed at the conclusion of the procedure. IMPRESSION: Images from ERCP examination as described. Signed by: Dr. Francisco Townsend M.D. on 07/04/2018 3:50 PM
[2018-07-04] MEDS: MEROPENEM 1GM 100 ML IV SCH (15:58)
[2018-07-04] MEDS: HYDRALAZINE HCL 20 MG/ML VIAL IV PRN ×2 (16:00→20:50)
--- NOTE | 2018-07-04 16:00 | NUR ---
PATIENT BACK TO UNIT FROM OR. REPORT RECEIVED FROM BOBO LYNN. PATIENT HAD AN ATTEMPTED ERCP. ALERT AND VERBALLY RESPONSIVE, BUT DROWSY, IV ANTIBIOTIC STARTED ORDERED, IV FLUID BOLUS IN PROGRESS. V/S 97.4-95-20-178/90 AND 93% ON 2L VIA N/C. PRN HYDRALAZINE GIVEN ORDERED. PATIENT REMAINS NPO PER DR'S ORDER. DRESSING REMAINS INTACT TO ABDOMEN. BED IN LOWER POSITION, CALL LIGHT AT REACH, FAMILY AT BED SIDE. BED ALARM ACTIVATED. WILL CLOSELY MONITOR.
[2018-07-04] MEDS ORDERED: LABETALOL HCL 5 MG/ML 20ML VIAL ONE (17:35)
[2018-07-04] MEDS ORDERED: PROPOFOL IV EMULSION 10 MG/ML 20 ML VIAL ONE (17:35)
[2018-07-04] MEDS: LEVOFLOXACIN 500MG/D5W 100ML 100 ML IV SCH (17:50)
[2018-07-04] MEDS ORDERED: MIDAZOLAM HCL 2 MG/2 ML VIAL ONE (18:00)
[2018-07-04] MEDS ORDERED: KETAMINE HCL INJ 50 MG/ML 10 ML VIAL ONE (18:00)
--- NOTE | 2018-07-04 18:10 | NUR ---
PATIENT NOTED WITH B/P OF 178/90. PRN HYDRALAZINE GIVEN. B/P RECHECKED WITH THE READING OF 144/75. PATIENT C/O ABDOMINAL PAIN, PAIN MEDICATION ADMINISTERED ORDERED. FAMILY AT BED SIDE. WILL CLOSELY MONITOR.
--- NOTE | 2018-07-04 19:08 | NUR ---
PATIENT'S HR NOTED TO BE BETWEEN 127- 131. PRN METOPROLOL GIVEN ORDERED. PATIENT IN BED RESTING WITH NO RESPIRATORY DISTRESS. CALL LIGHT AT EASY REACH. V/S 96.1-755-69-148/73 AND 95% ON 2L. REPORT GIVEN TO ON COMING NURSE.
--- NOTE | 2018-07-04 19:10 | NUR ---
patient recieved awake, alert, lying quietly in bed. patient medicated with metoprolol iv for elevated heart rate. will continue to monitor. patient denies pain at this time. pm assessment complete. patient instructed to call for assistance when needed.
[2018-07-04] MEDS: SIMVASTATIN 40 MG TAB PO SCH (20:21)
--- NOTE | 2018-07-04 20:50 | NUR ---
patient medicated with hydralazine 10 mg ivp for bp 161/92 hr 119.
--- NOTE | 2018-07-04 21:20 | NUR ---
patient medicated with norco 7.5/325 mg po for c/o abd pain 09/22. will continue to monitor.
[2018-07-04] MEDS ORDERED: METOPROLOL TARTRATE INJ 1 MG/ML VIAL IV ONE (22:15)
[2018-07-04] MEDS ORDERED: METOPROLOL TARTRATE INJ 1 MG/ML VIAL ONE (22:27)
--- NOTE | 2018-07-04 22:30 | NUR ---
metoprolol 5 mg ivp given x 1 for heart elevated heart rate. patient diaphoretic and flushed in face. blood sugar checked x 2. blood sugars 218, 220. Dr. Chery Valencia still on unit. ekg obtained and cardiac markers obtained per orders from Dr. Valencia. patient denies pain at this time.
--- NOTE | 2018-07-04 22:47 | Operative Report ---
DATE OF PROCEDURE: 07/04/2018 PROCEDURE: Endoscopic retrograde cholangiopancreatography with sphincterotomy and balloon sweep. INDICATION FOR PROCEDURE: Choledocholithiasis on intraoperative cholangiogram. The patient is status post cholecystectomy. PROCEDURE IN DETAIL: The patient in the prone position, the flexible fiberoptic Olympus side-viewing scope was inserted into the esophagus and advanced all the way to the second portion of the duodenum. The ampulla was identified and appeared to be within normal limits. It was cannulated with ease and a cholangiogram was carried out, which revealed a mildly dilated common bile duct. An endoscopic retrograde sphincterotomy then was carried out in usual fashion and followed by balloon sweep x2 with removal of a large number of debride. A common bile duct stent size 10/5 was inserted into the common bile duct. X-rays that were obtained postprocedure revealed that the stent possibly could be in the pancreatic duct. The stent was then subsequently removed, the patient tolerated the procedure well. IMPRESSION: 1. Ampulla within normal limits. 2. Cholangiogram revealed mildly dilated common bile duct. 3. ERS was carried out in the usual fashion. Followed through the balloon sweep x2 with removal of a large number of debride. A size 10/5 stent was inserted in the common bile duct, however, postprocedure x-rays revealed that the stent might be in the pancreatic duct, was subsequently removed. The patient tolerated the procedure well. PLAN: As ordered. Viet Valencia MD [facility]/[place] /[id number] cc: Vimal Mejias MD
[2018-07-04 23:24] LABS: CREATINE KINASE MB 1.4 ng/mL (0-5.0)
[2018-07-05] VITALS: BP 134/66
--- NOTE | 2018-07-05 | NUR ---
patient appears to be resting quietly. no c/o pain noted. patient states, " I feel much better. " noted at the bedside.
[2018-07-05] MEDS: MEROPENEM 1GM 100 ML IV SCH (02:59)
[2018-07-05 04:00] VITALS: BP 157/73
[2018-07-05] MEDS: HYDROCODONE/APAP 7.5MG-325MG 1 EA TAB PO PRN ×2 (04:27→11:34)
--- NOTE | 2018-07-05 04:27 | NUR ---
patient oob to chair. patient medicated with norco 7.5/325 mg po for c/o abd pain 09/22. remains at patients side. patient/ instructed to call for assistance when needed.
[2018-07-05 06:10] LABS: BASOPHILS % 0.4 % (0.0-1.0); EOSINOPHILS % 0.1 % (0.0-6.0); HEMATOCRIT 38.5 % (38.2-49.6); LYMPHOCYTES # (AUTO) 0.7 (1.0-3.2); LYMPHOCYTES % 8.1 % (18.0-39.1); MEAN CORPUSCULAR HGB CONC 31.2 g/dL (31-35); MEAN CORPUSCULAR VOLUME 83.3 fL (81-99); MONOCYTES # (AUTO) 0.6 (0.2-0.8); NEUTROPHILS # (AUTO) 7.2 (2.1-6.9); NEUTROPHILS % 83.7 % (38.7-80.0); PLATELET COUNT 173 x10e3/uL (140-360); RED BLOOD COUNT 4.62 x10e6/uL (4.3-5.7); RED CELL DISTRIBUTION WIDTH 18.1 % (11.7-14.4)
[2018-07-05 06:39] LABS: ALANINE AMINOTRANSFERASE 96 IU/L (0-55); ALBUMIN 2.5 g/dL (3.5-5.0); ALKALINE PHOSPHATASE 156 IU/L (40-150); ANION GAP 13.6 mmol/L (8-16); BLOOD UREA NITROGEN 13 mg/dL (7-26); BUN/CREATININE RATIO 13 (6-25); CALCIUM 9.3 mg/dL (8.4-10.2); CARBON DIOXIDE 23 mmol/L (22-29); CHLORIDE 101 mmol/L (98-107); CREATININE, SERUM 0.98 mg/dL (0.72-1.25); EST GLOMERULAR FILTRATION RATE > 60 ML/MIN (60-); GLUCOSE 225 mg/dL (74-118); MAGNESIUM 1.5 MG/DL (1.3-2.1); POTASSIUM 3.6 mmol/L (3.5-5.1); SODIUM 134 mmol/L (136-145)
--- NOTE | 2018-07-05 07:25 | NUR ---
PT UP SITTING ON SIDE OF BED ,DENIES [AIN,NO DSIOTRESS NOTED.
[2018-07-05 07:30] VITALS: BP 140/76
[2018-07-05] MEDS: PANTOPRAZOLE SOD 40 MG TABEC PO SCH (08:00)
[2018-07-05] MEDS: INSULIN REGULAR, HUMAN 100 UNIT/1 ML 3ML VIAL SQ SCH ×2 (08:00→11:30)
[2018-07-05 08:22] VITALS: BP 140/76
[2018-07-05] MEDS: METOPROLOL SUCCINATE 50 MG TAB XL PO SCH (09:00)
[2018-07-05] MEDS: FUROSEMIDE 20 MG TAB PO SCH ×2 (09:00→13:00)
[2018-07-05] MEDS: LISINOPRIL 20 MG TAB PO SCH (09:00)
[2018-07-05] MEDS: CLOPIDOGREL BISULFATE 75 MG TAB PO SCH (09:00)
[2018-07-05] MEDS: AMLODIPINE BESYLATE 10 MG TAB PO SCH (09:00)
[2018-07-05] MEDS: GABAPENTIN 100 MG CAP PO SCH (09:00)
[2018-07-05] MEDS: TERAZOSIN HCL 5 MG CAP PO SCH (09:00)
[2018-07-05 11:13] VITALS: BP 117/68
--- NOTE | 2018-07-05 11:30 | NUR ---
PT ANXIOUIS TO BE DISCHARGED ,EXPLAINED WE HAD TO WAIT FOR PHYSICAN,SPOKE WITH DR HICKS STATED HE HAD TO SEE PT BEFORE DISCHARGE.
--- NOTE | 2018-07-05 13:53 | NUR ---
IMM LETTER EXPLAINED. PT VERBALIZED UNDERSTANDING. PT. SIGNED IMM LETTER. COPY TO PT AND COPY TO THE CHART. PT STATES HE IS READY TO BE DISCHARGED. REQUESTED DR. JEFFREY BE CALLED. INFORMED THE PT AND SPOUSE CM WILL NOTIFY THEIR NURSE TO CONTACT DR. JEFFREY.
[2018-07-05] MEDS ORDERED: LEVAQUIN500 MG PO (14:54)
[2018-07-05] MEDS ORDERED: TYLENOL WITH C1 EACH PO (14:54)
[2018-07-05 15:43] VITALS: BP 142/73
--- NOTE | 2018-07-05 16:20 | NUR ---
pt discharged home iv dcd without redness or swelling,prescriptions and instructions given copy on chart,transported to auto via w/c
--- NOTE | 2018-07-06 15:28 | Discharge Summary ---
PRIMARY CARE PROVIDER: Dr. Horace Elias. ADMITTING DIAGNOSES: 1. Transaminitis or elevated liver enzymes. 2. Pancreatitis. 3. Arthritis and weakness. 4. Type 2 diabetes. 5. Atrial fibrillation with rapid ventricular response. 6. Hypertension. 7. Benign prostatic hypertrophy. 8. Hyperlipidemia. 9. Gastroesophageal reflux. 10. Diabetic neuropathy. DISCHARGE DIAGNOSES: 1. Transaminitis or elevated liver enzymes. 2. Pancreatitis. 3. Arthritis and weakness. 4. Type 2 diabetes. 5. Atrial fibrillation with rapid ventricular response. 6. Hypertension. 7. Benign prostatic hypertrophy. 8. Hyperlipidemia. 9. Gastroesophageal reflux. 10. Diabetic neuropathy. 11. Acute cholecystitis, choledocholithiasis and status post laparoscopic cholecystectomy and endoscopic retrograde cholangiopancreatography with intraductal stone removal. BRIEF HISTORY: Mr. Holley is a 77-year-old gentleman presenting with abdominal pain, nausea, vomiting, found to have elevated liver enzymes. His workup revealed pancreatitis and choledocholithiasis as well as acute cholecystitis due to gallstones. The patient was monitored with IV fluids and antibiotics initially until his pancreatitis had improved. At that time, the patient was taken to the OR, had a laparoscopic cholecystectomy followed by an ERCP with sweep and stone removal. The patient tolerated the procedure well. His blood pressure was somewhat difficult to control on his regular medications of metoprolol and lisinopril. Norvasc was added with good blood pressure control. The patient was discharged on all of his home medications plus Norvasc, to resume regular diet and activity and followup with his PCP within 2 weeks. MD KATALINA Torres/[place] /[id number]
--- NOTE | 2018-07-13 15:38 | Operative Report ---
DATE OF PROCEDURE: 07/03/2018 SURGEON: Vimal Mejias MD PREOPERATIVE DIAGNOSES: 1. Cholelithiasis. 2. Cholecystitis. 3. Abnormal liver function test. POSTOPERATIVE DIAGNOSES: 1. Cholelithiasis. 2. Cholecystitis. 3. Abnormal liver function test. 4. Choledocholithiasis. PROCEDURE PERFORMED: Laparoscopic cholecystectomy with intraoperative cholangiogram. ANESTHESIA: General. ESTIMATED BLOOD LOSS: Minimal. DRAINS: None. COMPLICATIONS: None. INDICATIONS AND FINDINGS: A 77-year-old male admitted to the hospital complaining of abdominal pain associated with gallstones and abnormal liver chemistries. The patient preoperatively had a cholangio MRI and CT that revealed no stones. When his liver enzymes were trending down, he was taken to the operating room for cholecystectomy. INTROPERATIVE FINDINGS: Cholelithiasis, cholecystitis, subacute and a filling defect on intraoperative cholangiogram. DESCRIPTION OF PROCEDURE: With the patient lying on the operating table in the supine position and after administration of general anesthesia, he was prepped and draped for laparoscopic cholecystectomy. The procedure establishing the pneumoperitoneum at the umbilicus site. After stab wound was made in the location, a saline drop test was performed. The camera was introduced and under direct vision, we placed a subxiphoid 10 mm and 2 lateral working ports in the upper quadrant, 5 mm each. We began the dissection by retracting the gallbladder cephalad through grasping forceps and then exposing the hepatoduodenal ligament. We began the dissection on the neck of the gallbladder until we exposed the cystic duct. At that point, we clipped the cystic duct proximally and then performed an intraoperative cholangiogram using 50% dye through a [facility] placed with a lateral 5 mm trocar. The intraoperative cholangiogram revealed a defect in the distal common duct with no flow dye to the duodenum. At this point, we transected the cystic duct with titanium clips and then we placed an Endoloop with 0 PDS to secure the closure. Then, we removed the gallbladder with use electrocautery dissection. We reinsufflated the pneumoperitoneum and inspected the operative field, there was no bile leak, no bleeding, no apparent bowel injury at that point. We then released the pneumoperitoneum and closed the wound after extraction of the gallbladder to the umbilical port using 0 Vicryl for the umbilical fascia, 3-0 Vicryl for the subcutaneous tissue in that location as well as and the skin of all the ports was closed with jewell, 0.25% Marcaine with epinephrine was given as local block at the end of the case. The patient tolerated the procedure well, taken to the recovery room in stable condition. MD KASIA Landin/[place] /[id number]
== END 2018-07-05 16:00 | disposition home or self-care (01) | DRG 417 ==
LOC: ER 17:54 → ERHOLD 23:32 → INTOOBSV 23:32 → IMCU 06-30 00:02 → OBSVTOIN 07-01 13:36 → MED/SURG3 07-02 14:07
PROVIDERS: ADMIT Internal Medicine; ATTEND Internal Medicine
PROC: BF101ZZ Fluoroscopy of Bile Ducts using Low Osmolar Contrast (ICD-10-PCS; 2018-07-03)
PROC: 0FT44ZZ Resection of Gallbladder, Percutaneous Endoscopic Approach (ICD-10-PCS; principal; 2018-07-03 13:30)
PROC: 0FC98ZZ Extirpation of Matter from Common Bile Duct, Via Natural or Artificial Opening Endoscopic (ICD-10-PCS; 2018-07-04)
PROC: 0F7D8DZ Dilation of Pancreatic Duct with Intraluminal Device, Via Natural or Artificial Opening Endoscopic (ICD-10-PCS; 2018-07-04)
PROC: 0FPD8DZ Removal of Intraluminal Device from Pancreatic Duct, Via Natural or Artificial Opening Endoscopic (ICD-10-PCS; 2018-07-04)
PROC: BF101ZZ Fluoroscopy of Bile Ducts using Low Osmolar Contrast (ICD-10-PCS; 2018-07-04)
DX: K80.62 Calculus of gallbladder and bile duct with acute cholecystitis without obstruction (principal); K85.90 Acute pancreatitis without necrosis or infection, unspecified; I48.91 Unspecified atrial fibrillation; K57.30 Diverticulosis of large intestine without perforation or abscess without bleeding; E11.40 Type 2 diabetes mellitus with diabetic neuropathy, unspecified; M19.90 Unspecified osteoarthritis, unspecified site; K21.9 Gastro-esophageal reflux disease without esophagitis; E78.5 Hyperlipidemia, unspecified; N40.0 Benign prostatic hyperplasia without lower urinary tract symptoms; Z87.891 Personal history of nicotine dependence; Z79.84 Long term (current) use of oral hypoglycemic drugs; Z79.02 Long term (current) use of antithrombotics/antiplatelets; I10 Essential (primary) hypertension
CPT/HCPCS: 36415; 43260; 70450; 71045; 74177; 74181; 74300; 74328; 80048; 80053; 80076; 81001; 82140; 82550; 82553; 82948; 83036; 83690; 83735; 83880; 84439; 84443; 84484; 85025; 85610; 85730; 87086; 87400; 88304; 93005; 93306; 99284; C1766; C2625; G0378; J0360; J1610; J1956; J2001; J2250; J2270; J7030; J7040; J7050; J7799; Q9967